=== PATIENT | male | born 1955 | race Caucasian/White ===

== ENCOUNTER 2016-10-01 17:36 | Inpatient (IN) | payer BC, OTHER ==
[~2016-10-01] VITALS: Ht 190.5 cm; Wt 94.8 kg
--- NOTE | ~2016-10-01 | EKG ---
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
--- NOTE | ~2016-10-01 | EKG ---
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
--- NOTE | ~2016-10-01 | HC ---
[facility] [place] [address] CONSULTATION Name: HUMZA ATWOOD Room #: 458-P [facility] IN ..#: [id number] Admission: 10/01/16 Attend Phys: Irvin Zacarias MD Discharge: Date of : 59 Report #: [id number] THIS REPORT FOR: //name// CC: Irvin Jain DATE OF SERVICE: 10/03/2016 INDICATION: Troponin elevation. HISTORY OF PRESENT ILLNESS: This is a 61-year-old gentleman who presented with complaints of visual disturbance, headache, and difficulty with speech. The whole episode lasted approximately 1-1/2 hours in duration. He denies any episodes of angina, shortness of breath, palpitations or congestion. In the ER, he was noted to have an abnormal ECG and a minimally elevated troponin level. There is no history of fever, chills, nausea, or diarrhea. PAST MEDICAL HISTORY: Hypercholesterolemia, history of melanoma. ALLERGIES: None. MEDICATIONS: Include Livalo 4 mg. SOCIAL HISTORY: Negative for tobacco use. FAMILY HISTORY: Negative for premature CAD. REVIEW OF SYSTEMS: A full 10-point review of systems performed. Only the pertinent positives and negatives are described in the HPI. PHYSICAL EXAMINATION: VITAL SIGNS: Blood pressure is 118/70, heart rate is 70 beats per minute. GENERAL APPEARANCE: This is a well-developed, well-nourished male in no acute respiratory distress. HEAD AND EYES: Normocephalic. Sclerae are anicteric. ENT: Oral mucosa moist. NECK: Supple. LUNGS: Clear to auscultation. CARDIAC: Regular rate and rhythm, S1, S2 positive. ABDOMEN: Soft, nontender. Bowel sounds positive. EXTREMITIES: No cyanosis, no edema. SKIN: Intact, no rashes. NEUROLOGIC: Alert and oriented times 3. ECG reveals sinus rhythm, questionable Q-waves inferiorly, although they did not [facility] [address] [place] [address] CONSULTATION Name: HUMZA ATWOOD Room #: 458-P [facility] IN [facility]#: [id number] Admission: 10/01/16 Attend Phys: Irvin Zacarias MD Discharge: Date of : 59 Report #: [id number] appear to indicate infarct. No ST segment changes. LABORATORY VALUES: Peak troponin level is 0.37. White count is 5.5, hemoglobin 15.5. Sodium is 141, creatinine is 1.0. ASSESSMENT AND PLAN: 1. Troponin elevation. The peak is 0.37. Clinically, he does not report any cardiac symptoms. He is able to ambulate without any difficulty. The ECG does not show any acute ST segment changes. Agree with proceeding with a noninvasive stress test and echocardiogram. 2. Transient ischemic attack, workup in progress. 3. Hypercholesterolemia, tolerating statin therapy. 4. Palpitations, the patient reports he was previously evaluated about a month ago for palpitations, unremarkable evaluation. Consider monitoring as an outpatient upon discharge. <ELECTRONICALLY SIGNED> By: Angel Pires MD 10/04/16 0732 [id number] [id number] Angel Pires MD /sha
--- NOTE | ~2016-10-01 | 2DMMODE ---
[facility] [address] [employer] [employer] [facility] [place] [address] 2 D/M-MODE ECHOCARDIOGRAM Name: HUMZA ATWOOD Room #: 458-P [facility] IN ..#: [id number] Admission: 10/01/16 Attend Phys: Irvin Zacarias MD Discharge: Date of : 59 Date of Service: 10/04/16 1309 Report #: [id number] THIS REPORT FOR: //name// APPROVED REPORT Study performed: 10/04/2016 10:58:05 EXAM: Comprehensive 2D, Doppler, and color-flow Echocardiogram Patient Location: Echo lab Room #: 458 Status: routine Other Information Study Quality: Good Indications HLP, Elevated Troponin. 2D Dimensions RVDd: 39.63 mm LVEF(%): 60.23 (>50%) IVSd: 8.06 (7-11mm) LVOT Diam: 24.84 (18-24mm) LVDd: 44.67 mm PWd: 8.27 (7-11mm) Ascending Ao: 35.91 (22-36mm) LVDs: 30.39 (25-40mm) Aortic Root: 40.43 mm IVC: 18.00 mm Dewey's LVEF: 60.23 % Volumes Left Atrial Volume (Systole) Single Plane 4CH: 33.36 mL Single Plane 2CH: 32.79 mL LA ESV Index: 16.00 mL/m2 Aortic Valve AoV Peak Eric.: 1.00 m/s AO Peak Gr.: 3.98 mmHg LVOT Max P.93 mmHg LVOT Max V: 0.86 m/s HARRY Vmax: 4.16 cm2 Mitral Valve E/A Ratio: 0.8 MV Decel. Time: 325.05 ms MV E Max Eric.: 0.53 m/s MV A Eric.: 0.69 m/s MV PHT: 94.26 ms IVRT: 129.18 ms [facility] [place] [address] 2 D/M-MODE ECHOCARDIOGRAM Name: HUMZA ATWOOD Oscar Room #: 458-P [facility] IN ..#: [id number] Admission: 10/01/16 Attend Phys: Irvin Zacarias MD Discharge: Date of : 59 Date of Service: 10/04/16 1309 Report #: [id number] Pulmonary Valve PV Peak Eric.: 0.76 m/s PV Peak Gr.: 2.28 mmHg Pulmonary Vein P Vein S: 0.50 m/s P Vein A: 0.30 m/s P Vein D: 0.33 m/s P Vein A Dur.: 110.7 msec P Vein S/D Ratio: 1.52 Tricuspid Valve TR Peak Eric.: 2.12 m/s RAP Estimate: 5.00 mmHg TR Peak Gr.: 17.91 mmHg PA Pressure: 23.00 mmHg Left Ventricle The left ventricle is normal size. There is normal left ventricular wall thickness. The left ventricular systolic function is normal. The left ventricular ejection fraction is within the normal range. LVEF is 55-60%. Grade I - abnormal relaxation pattern. Right Ventricle The right ventricle is normal size. The right ventricular systolic function is normal. Atria The left atrium size is normal. The right atrium size is normal. Aortic Valve The aortic valve is normal in structure. No aortic regurgitation is present. There is no aortic valvular stenosis. Mitral Valve The mitral valve is normal in structure. There is no mitral valve regurgitation noted. Tricuspid Valve The tricuspid valve is normal in structure. There is trace tricuspid regurgitation. The right atrial pressure is estimated at 5 mmHg. There is no pulmonary hypertension. Pulmonic Valve The pulmonary valve is normal in structure. There is no pulmonic valvular regurgitation. [employer] [address] [address] 2 D/M-MODE ECHOCARDIOGRAM Name: HUMZA ATWOOD Room #: 458-P [facility] IN [facility]#: [id number] Admission: 10/01/16 Attend Phys: Irvin Zacarias MD Discharge: Date of : 59 Date of Service: 10/04/16 1309 Report #: [id number] The aortic root is normal in size. IVC is normal in size and collapses >50% with inspiration. Pericardium There is no pericardial effusion. <Conclusion> The left ventricle is normal size. The left ventricular systolic function is normal. Grade I - abnormal relaxation pattern. The right ventricle is normal size. The left atrium size is normal. The aortic valve is normal in structure. The mitral valve is normal in structure. There is trace tricuspid regurgitation. The right atrial pressure is estimated at 5 mmHg. There is no pulmonary hypertension. <ELECTRONICALLY SIGNED> By: Angel Pires MD 10/04/16 1309 1309 1309 Angel Pires MD /INF
--- NOTE | ~2016-10-01 | EKG ---
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
--- NOTE | ~2016-10-01 | EKG ---
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
[~2016-10-01 17:36] MED LIST: FISH OIL 1,001000 M2 PO; LIPITOR 20 MG T20 M1 PO; VITAMINC500 PO
[2016-10-01 18:16] VITALS: BP 130/82
[2016-10-01 18:43] LABS: HEMATOCRIT 43.4 % (42.0-52.0); HEMOGLOBIN 15.2 gm/dL (14.0-18.0); MCH 32.4 pg (26.0-34.0); MCHC 35.1 g/dL (28.0-37.0); MCV 92.4 fL (80.0-100.0); RBC 4.7 mil/uL (4.50-6.00); RDW 12.7 % (10.5-14.5); WBC 5.5 thou/uL (4.0-11.0)
[2016-10-01 18:56] LABS: CALCIUM 8.8 mg/dL (8.5-10.1); POTASSIUM 3.7 mmol/L (3.5-5.1)
[2016-10-01 18:59] LABS: APTT 27.4 Seconds (24.5-32.8)
[2016-10-01 19:07] LABS: TROPONIN-I 0.32 ng/mL (<0.04-0.07)
[2016-10-01] MEDS ORDERED: LIVALO4 MG PO (20:14)
[2016-10-01] MEDS ORDERED: COD LIVER OIL1 ML PO (20:15)
[2016-10-01 20:45] VITALS: BP 139/82
[2016-10-01 21:02] LABS: AMP/METHAMP Negative (Negative); BARBITURATES Negative (Negative); BENZODIAZEPINES Negative (Negative); COCAINE Negative (Negative); METHADONE Negative (Negative); OPIATES Negative (Negative); PCP Negative (Negative); THC Negative (Negative)
[2016-10-02 04:00] VITALS: BP 113/74
[2016-10-02 05:25] LABS: SERUM ASSESSMENT Clear
[2016-10-02 05:26] LABS: CHOLESTEROL 134 mg/dL (<200); HDL CHOLESTEROL 42 mg/dL (>40); LDL CHOLESTEROL 54 mg/dL (<100); TC:HDL 3.2 Ratio (Not establshd); TRIGLYCERIDE 191 mg/dL (<150); VLDL 38 mg/dL (<40)
[2016-10-02 07:10] VITALS: BP 115/70
[2016-10-02 12:00] VITALS: BP 115/75
[2016-10-02 15:55] VITALS: BP 132/86
[2016-10-02 19:25] VITALS: BP 131/72
[2016-10-03 04:12] VITALS: BP 118/76
[2016-10-03 08:00] VITALS: BP 115/76
[2016-10-03 12:00] VITALS: BP 126/75; BP 129/83
[2016-10-03 16:00] VITALS: BP 116/76
[2016-10-03 19:37] VITALS: BP 114/77
[2016-10-03 23:30] VITALS: BP 128/81
[2016-10-04] VITALS (7 sets, daily range): BP systolic 118–146; BP diastolic 76–91
== END 2016-10-04 19:20 | disposition home or self-care (01) | DRG 101 ==
LOC: ER 17:36 → 4W 20:17 → EROBS 20:17 → 4W 21:14
PROVIDERS: Emergency Medicine
DX: G40.909 Epilepsy, unspecified, not intractable, without status epilepticus (principal); G45.9 Transient cerebral ischemic attack, unspecified; E78.5 Hyperlipidemia, unspecified; R94.31 Abnormal electrocardiogram [ECG] [EKG]; G43.909 Migraine, unspecified, not intractable, without status migrainosus; E78.00 Pure hypercholesterolemia, unspecified; Z85.820 Personal history of malignant melanoma of skin
CPT/HCPCS: 10045

== ENCOUNTER → 2016-12-08 | Outpatient (CLI) | payer BC, OTHER ==
[~2016-12-08] MED LIST changes: +COD LIVER OIL1 ML PO; +LIVALO4 MG PO
--- NOTE | ~2016-12-08 | P ---
[facility] [place] [address] PROCEDURE REPORT Name: HUMZA ATWOOD Room #: REG aSm Olson#: [id number] Admission: 12/08/16 Attend Phys: Eduardo Villalba MD Discharge: Date of : 59 Report #: [id number] THIS REPORT FOR: //name// CC: Eduardo Villalba Esau Cristobal DATE OF SERVICE: 02/25/2017 IMPLANTABLE LOOP RECORDER INSERTION. PROCEDURE IN DETAIL: The patient underwent informed consent. The patient was prepped in a sterile fashion. Small incision was made after lidocaine was injected. The implantable loop recorder was inserted under the skin. The skin was sutured with layers of suture and a dressing was placed. There was no significant bleeding and no complications. The implanted device was a BioMonitor 2, reference #[id number], serial #[id number]. CONCLUSION: Successful implantable loop recorder insertion. By: 1247 2301 Eduardo Villalba MD /nt
== END | disposition home or self-care (01) ==
LOC: CATH 11-04 13:42
DX: Z45.010 Encounter for checking and testing of cardiac pacemaker pulse generator [battery] (principal)

== ENCOUNTER 2019-06-25 20:14 | Inpatient (IN) | payer BC, OTHER ==
[~2019-06-25] VITALS: Ht 193 cm; Wt 99.3 kg
--- NOTE | ~2019-06-25 | HC ---
[facility] [place] [address] CONSULTATION Name: HUMZA ATWOOD Room #: 206-P ADM IN .R.#: [id number] Admission: 06/25/19 Attend Phys: Maciel Nielson MD Discharge: Date of : 59 Report #: [id number] THIS REPORT FOR: cc: Esau Jain MD, Stanley P. MD Khosla, Parveen K. MD ~ CC: Maciel Jain DATE OF SERVICE: 06/26/2019 HISTORY OF PRESENT ILLNESS: This is a 64-year-old male patient who was evaluated by me for stroke-like symptoms. I talked to Emergency Room physician, Dr. Fernandez earlier and I talked to the nurse looking after this patient. I talked to the patient in detail and I reviewed the patient's records in the computer from the last admission. Dr. Fernandez had called me earlier and he indicated that this patient had acute onset of visual problems, which lasted about 30 minutes and then resolved by itself. She indicated that the patient's NIH stroke scale was 0 at that time. When this happened, there is some question that the patient had some confusion and according to the patient that also subsequently resolved and he was back to his baseline. I discussed the patient with Emergency Room physician and recommended a CT stroke protocol and if the CT stroke protocol was normal, then admit the patient to get an MRI. This is because the patient had pretty similar symptoms the last time and last time his MRI was normal. As I understood the patient's symptoms resolved, but reviewing the record, it would appear that his CT stroke protocol was done, but his CT perfusion was a technically limited study and was not normal. It was basically uninterpretable as I understand from the report. I have difficulty loading that study. The patient indicates that his symptoms were followed by headache this time and it was followed by headache last time. He is pretty clear that his symptoms have resolved and he is back to his baseline and this happened sometime earlier today. REVIEW OF SYSTEMS: Indicate that this patient had a similar episode in the past. Those records were reviewed and that time, his MRI was normal. He also had similar memory problems that time too as Dr. Burris, the neurologist's notes indicate and as the patient tells me. He indicates that he does have some high cholesterol, but he does not drink alcohol except occasionally and he is otherwise reasonably healthy. Looking at his records, his last LDL was actually 54, although his triglyceride was somewhat high. Rest of the review of system was mostly unremarkable. PAST MEDICAL HISTORY: Positive for exactly same kind of episode before, [place] [address] [place] [address] CONSULTATION Name: HUMZA ATWOOD Oscar Room #: 206-P [facility] IN M.R.#: [id number] Admission: 06/25/19 Attend Phys: Maciel Nielson MD Discharge: Date of : 59 Report #: [id number] also spontaneously resolved. His workup including a loop recorder was unremarkable. His MRI did not show any stroke last time and his carotid Doppler did not show any significant stenosis. There was some question of subclavian steal syndrome, but that also was ruled out as I understand from the notes. Past medical history is positive for above described episode. FAMILY HISTORY: Negative for any early age stroke. SOCIAL HISTORY: He drinks alcohol occasionally. PHYSICAL EXAMINATION: Indicate that he is alert. He is responsive. He is able to tell me the exact date and year. He knows what hospital he is in. He knows who the president is. His speech is spontaneous and fluent. His cranial nerve examination 2-12 does not appear to be showing any abnormality and in fact does not appear to have any hemianopsia. His NIH score on my examination is also 0. Cardiac examinations appear unremarkable. His vital signs indicate a blood pressure of 121/61 and it has never been very high. There is no reactive hypertension. IMPRESSION: The patient's clinical presentation is consistent with transient ischemic attack and this is his second episode from 2017. 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 His triglyceride was high, but his LDL was normal last time and he does not have many other vascular risk factors. He is pretty certain that he has returned back to his baseline. He has no hypertension here or not even reactive hypertension too whatever the etiology of the spells is. I discussed the situation with the patient in detail. I discussed with him multiple things including TPA as well as changing aspirin to Plavix. I did discuss with him that even if clinically he has TIA where the symptoms resolved within 24 hours, many times we do find a stroke on MRI and we may very well in his case. If the symptoms have fully resolved, typically we do not give TPA, but there is subjective choice and it also depends upon the patient's choice. He is agreeable with the present management of observing him and see how he does since his symptoms have resolved. The question is what to do in future to prevent similar episode from happening. Somebody has a question about aneurysm. I do not find any aneurysm on my evaluation of his imaging studies, but we will try to discuss with the neuroradiologist. I will be in favor of giving a combination of aspirin and Plavix. If he did have a stroke on MRI, I will continue with combination of aspirin and Plavix for 30 days and then we can change it to Plavix. If he did not have the stroke on MRI, I will suggest changing the aspirin to Plavix. I did discuss the potential side effect of Plavix with the patient, especially in a situation like if he needs any emergent surgery. He understands that he had some concern about Plavix, but he indicated that he will be willing to go on Plavix if there is any need for it. I discussed all his options with him. I will try to get his CT angio reviewed by [address] [place] [address] CONSULTATION Name: HUMZA ATWOOD Room #: 206-P [facility] IN [facility].#: [id number] Admission: 06/25/19 Attend Phys: Maciel Nielson MD Discharge: Date of : 59 Report #: [id number] neuroradiologist in the morning. I will go ahead and give him 75 mg of Plavix tonight, but depending upon the review of the MRI in the morning by radiologist, I may give him a full loading dose that time. Thank you very much for this referral and if you have any question, please feel free to contact me. By: [phone] Christiano Wood MD /nt
[2019-06-25 20:19] VITALS: BP 127/76
[2019-06-25] MEDS ORDERED: ASA81BEC PO (20:23)
[2019-06-25] MEDS ORDERED: LIPITOR 40 MG T40 M1 PO (20:23)
[2019-06-25 20:41] LABS: ABSOLUTE NEUTROPHILS 3.5 thou/uL (1.4-8.2); BASOPHILS 0.3 % (0.0-2.0); EOSINOPHILS 3.3 % (0.0-3.0); HEMATOCRIT 48.3 % (42.0-52.0); HEMOGLOBIN 16.7 gm/dL (14.0-18.0); LYMPHOCYTES 38.8 % (24.0-44.0); MCH 32.7 pg (26.0-34.0); MCHC 34.6 g/dL (28.0-37.0); MCV 94.4 fL (80.0-100.0); MONOCYTES 8.2 % (1.0-8.0); PLATELET COUNT 217 thou/uL (150-400); POLYS 49.4 % (36.0-66.0); RBC 5.11 mil/uL (4.50-6.00); RDW 12.6 % (10.5-14.5); WBC 7.1 thou/uL (4.0-11.0)
[2019-06-25 20:49] LABS: CALCIUM 8.5 mg/dL (8.5-10.1); CREATININE 1.1 mg/dL (0.7-1.3); POTASSIUM 3.6 mmol/L (3.5-5.1)
[2019-06-25 20:59] LABS: ALBUMIN 3.6 g/dL (3.4-5.0); TOTAL BILIRUBIN 0.5 mg/dL (<0.1-1.0); TOTAL PROTEIN 6.9 g/dL (6.4-8.2); TROPONIN-I 0.28 ng/mL (<0.06)
[2019-06-25 22:18] VITALS: BP 124/84
[2019-06-25 22:58] VITALS: BP 134/94
[2019-06-26] VITALS: BP 121/61
[2019-06-26] MEDS ORDERED: VITAMIN D310 MCG/1 M PO (00:02)
[2019-06-26] MEDS ORDERED: VITAMIN B122500 MCG PO (00:03)
[2019-06-26] MEDS ORDERED: tumeric PO (00:04)
[2019-06-26] MEDS ORDERED: COD LIVER OIL PO (00:05)
[2019-06-26 05:55] LABS: ANION GAP 8 mmol/L (7-16); BUN 13 mg/dL (7-18); CALCIUM 8.2 mg/dL (8.5-10.1); CHLORIDE 107 mmol/L (98-107); CHOLESTEROL 110 mg/dL (<200); CO2 27 mmol/L (21-32); GLUCOSE 91 mg/dL (74-106); HDL CHOLESTEROL 40 mg/dL (>40); LDL CHOLESTEROL 58 mg/dL (<100); POTASSIUM 3.8 mmol/L (3.5-5.1); SODIUM 142 mmol/L (136-145); TC:HDL 2.8 Ratio (Not establshd); TRIGLYCERIDE 61 mg/dL (<150); VLDL 12 mg/dL (<40)
--- NOTE | 2019-06-26 07:24 | NUR ---
Arrived from ER around around 2310. Able to answer orientation questions and verbalized his mental status is back to his baseline. NIH = 0 , no change in neuro status. Dr. Wood came in to see pt. and ordered 75 mg of plavix to be given until MRI result is back. MRI checklist completed and faxed. He slept for few hours. Denies any discomfort. Will continue to monitor.
[2019-06-26 07:33] VITALS: BP 99/53
--- NOTE | 2019-06-26 08:18 | EKG ---
[facility] [place] [address] ELECTROCARDIOGRAM REPORT Name: HUMZA ATWOOD Room #: 206-P ADM IN M.R.#: [id number] Admission: 06/25/19 Attend Phys: Maciel Nielson MD Discharge: Date of : 59 Report #: [id number] THIS REPORT FOR: cc: Esau Jain MD, Stanley P. 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1955 Requested By: Nargis Fernandez Order Number: [id number] MD: Victor Manuel Barber Measurements Intervals [place] Rate: 80 P: 28 [place]: 155 QRS: -35 QRSD: 102 T: 53 QT: 408 QTc: 471 Interpretive Statements Sinus rhythm Abnormal R-wave progression, early transition Inferior infarct, old Compared to ECG 10/02/2016 16:49:44 Early R wave progression is now present Electronically Signed On 06-26-2019 8:17:09 CDT by Victor Manuel Barber [email or web address] <ELECTRONICALLY SIGNED> By: Victor Manuel Barber MD, FAC 06/26/19816 57 57 Victor Manuel Barber MD, FAC /EPI
--- NOTE | 2019-06-26 15:04 | NUR ---
ASSUMED CARE AT SHIFT CHANGE, ASSESSMENT CHARTED, DENEIS ANY PAIN OR DISOCMFORT. NIHS 0, AND PATIENT DENIES ANY SYMPTOMS. VSS AND NSR ON THE MONITOR AND WILL CONTINUE TO MONITOR.
[2019-06-26 16:30] VITALS: BP 110/76
[2019-06-26 20:11] VITALS: BP 112/72
[2019-06-27 00:07] LABS: GLYCOHEMOGLOBIN (HGB A1C) 5.2 % (4.8-5.6)
[2019-06-27 05:02] VITALS: BP 124/78
[2019-06-27 05:47] LABS: HEMOGLOBIN 15.4 gm/dL (14.0-18.0); MCH 32.6 pg (26.0-34.0); MCHC 34.3 g/dL (28.0-37.0); RBC 4.73 mil/uL (4.50-6.00); RDW 12.3 % (10.5-14.5); WBC 5.6 thou/uL (4.0-11.0)
[2019-06-27 06:11] LABS: CALCIUM 8.3 mg/dL (8.5-10.1); POTASSIUM 3.4 mmol/L (3.5-5.1); TROPONIN-I 0.2 ng/mL (<0.06)
[2019-06-27 07:43] VITALS: BP 122/67
--- NOTE | 2019-06-27 07:50 | NUR ---
Pt. slept some during the night. No change in neuro status. Denies any pain or discomfort. Up ad gabby in room with steady gait. Progressing towards discharge goals.
--- NOTE | 2019-06-27 10:04 | NUR ---
Received awake on bed. Due medications given as prescribed, able to swallow meds w/o difficulty. On room air. A+Ox4, no facial drooping, no slurred speech noted from the patient. On heart monitoring, no complaints of chest pain, no crushing or heaviness sensation. A/W echo for today, tried to call several times to find out the time but no one was answering the call. On heart healthy diet- tolerating well; no nausea, no vomiting and no abdominal pain noted. Continent of bowel and bladder. With SL at R FA. Up ad gabby. Assisted in ADLs. A/w physician's rounds to carify if it is still safe for him take aspirin as someone has told him that he will be started on a new medication, and also looking forward to be discharged today. To continue monitoring patient. Call ECHO again re: proceudre, still unable to contact them, will keep trying to call unit.
--- NOTE | 2019-06-27 11:40 | 2DMMODE ---
[facility] [place] [address] 2 D/M-MODE ECHOCARDIOGRAM Name: HUMZA ATWOOD Oscar Room #: 206-P ADM IN M.R.#: [id number] Admission: 06/25/19 Attend Phys: Maciel Nielson MD Discharge: Date of : 59 Report #: [id number] THIS REPORT FOR: cc: Esau Jain MD, Stanley P. MD Lammoglia, Francisco J. MD ~ APPROVED REPORT Study performed: 06/27/2019 10:51:17 EXAM: Comprehensive 2D, Doppler, and color-flow Echocardiogram Patient Location: Bedside Room #: 206 Status: routine BSA: 2.31 HR: 72 bpm BP: 122/67 mmHg Rhythm: NSR Other Information Study Quality: Adequate/lung interference. Indications TIA. Hx: HLP Echo Enhancing Agent Indication: Rule out Shunt Agent(s) / Amount(s) Used: Agitated Saline 6 cc 2D Dimensions RVDd: 28.34 mm IVSd: 11.57 (7-11mm) LVOT Diam: 26.90 (18-24mm) LVDd: 39.72 mm PWd: 9.58 (7-11mm) Ascending Ao: 37.79 (22-36mm) LVDs: 30.18 (25-40mm) Aortic Root: 47.20 mm Volumes Left Atrial Volume (Systole) Single Plane 4CH: 30.97 mL Single Plane 2CH: 42.17 mL LA ESV Index: 18.00 mL/m2 Aortic Valve [facility] [address] [place] [address] 2 D/M-MODE ECHOCARDIOGRAM Name: HUMZA ATWOOD Room #: 206-P [facility] IN ..#: [id number] Admission: 06/25/19 Attend Phys: Maciel Nielson MD Discharge: Date of : 59 Report #: [id number] AoV Peak Eric.: 0.86 m/s AO Peak Gr.: 2.95 mmHg LVOT Max P.47 mmHg LVOT Max V: 0.93 m/s HARRY Vmax: 6.16 cm2 Mitral Valve E/A Ratio: 0.8 MV Decel. Time: 240.82 ms MV E Max Eric.: 0.52 m/s MV A Eric.: 0.64 m/s MV PHT: 69.84 ms IVRT: 93.43 ms Pulmonary Valve PV Peak Eric.: 0.72 m/s PV Peak Gr.: 2.06 mmHg Pulmonary Vein P Vein S: 0.41 m/s P Vein A: 0.33 m/s P Vein D: 0.23 m/s P Vein A Dur.: 114.2 msec P Vein S/D Ratio: 1.78 Tricuspid Valve TR Peak Eric.: 1.78 m/s RAP Estimate: 5.00 mmHg TR Peak Gr.: 13.00 mmHg PA Pressure: 18.00 mmHg Left Ventricle The left ventricle is normal size. There is normal LV segmental wall motion. Mild basal septal hypertrophy is present. Left ventricular systolic function is normal. LVEF is 55%. Mild diastolic dysfunction is present (impaired relaxation pattern). Right Ventricle The right ventricle is normal size. The right ventricular systolic function is normal. Atria The left atrium size is normal. No shunting noted with contrast bubble injection. The right atrium size is normal. Aortic Valve The aortic valve is normal in structure. No aortic regurgitation is present. There is no aortic valvular stenosis. Mitral Valve The mitral valve is normal in structure. Trace mitral regurgitation. [facility] [address] [place] [address] 2 D/M-MODE ECHOCARDIOGRAM Name: HUMZA ATWOOD Room #: 206-P [facility] IN ..#: [id number] Admission: 06/25/19 Attend Phys: Maciel Nielson MD Discharge: Date of : 59 Report #: [id number] No evidence of mitral valve stenosis. Tricuspid Valve The tricuspid valve is normal in structure. Trace tricuspid regurgitation. Estimated PAP is 20mmHg. Pulmonic Valve The pulmonary valve is normal in structure. Trace pulmonic regurgitation. Great Vessels Aortic root is moderately dilated at 4.7cm. The ascending aorta is borderline dilated. IVC is normal in size and collapses >50% with inspiration. Pericardium There is no pericardial effusion. <Conclusion> The left ventricle is normal size. LVEF is 55%. The aortic valve is normal in structure. The mitral valve is normal in structure. Trace mitral regurgitation. The tricuspid valve is normal in structure. Trace tricuspid regurgitation. Estimated PAP is 20mmHg. The pulmonary valve is normal in structure. Trace pulmonic regurgitation. There is no pericardial effusion. <ELECTRONICALLY SIGNED> By: Donnie Sesay MD 06/27/19 [id number] Donnie Sesay MD /INF
[2019-06-27 11:45] VITALS: BP 113/64
[2019-06-27] MEDS ORDERED: ACETAMINOPHEN325 M1 PO (11:56)
[2019-06-27] MEDS ORDERED: CLOPIDOGREL75 MG PO (11:56)
[2019-06-27 12:17] VITALS: BP 113/64
== END 2019-06-27 14:01 | disposition home or self-care (01) | DRG 69 ==
LOC: ER 20:14 → 2N 21:46 → EROBS 21:46 → 2N 23:00
PROVIDERS: Internal Medicine; Nurse Practitioner Family; Psychiatry & Neurology Neuromuscular Medicine; Student in an Organized Health Care Education/Training Program; ADMIT Hospitalist
DX: G45.8 Other transient cerebral ischemic attacks and related syndromes (principal); G92 Toxic encephalopathy; E78.00 Pure hypercholesterolemia, unspecified; E78.5 Hyperlipidemia, unspecified; I48.0 Paroxysmal atrial fibrillation; G43.409 Hemiplegic migraine, not intractable, without status migrainosus; Z79.899 Other long term (current) drug therapy
CPT/HCPCS: 10081